=== PATIENT | male | born 1965 | race Caucasian/White ===

== ENCOUNTER 2022-09-03 15:01 | Emergency (ER) | payer OTHER ==
[2022-09-03 15:42] VITALS: BMI 21.4
[2022-09-03] MEDS ORDERED: ALPRAZolam 1 MG TABLET PO ONE (16:50)
[2022-09-03] MEDS ORDERED: ALPRAZolam 1 MG TABLET ONE (17:13)
[2022-09-03 17:24] LABS: BASO % 0.8 % (0-2.0); HEMOGLOBIN 15.3 GM/dL (11.7-16.9); LYMPH % 19.9 % (8-40); MCH 29.1 pg (25.7-33.7); MCHC 33.9 g/dl (32.0-35.9); MEAN CELL VOLUME 85.9 fl (80-96); MEAN PLT VOLUME 9.1 fl (7.5-11.1); MONO % 7.1 % (3.8-10.2); NEUT % 71.2 % (42.8-82.8); PLATELET COUNT 448 10^3/uL (134-434); RBC 5.24 M/mm3 (4.00-5.60); RDW 14.2 % (11.9-15.9); WHITE BLOOD COUNT 8.2 K/mm3 (4.0-10.0)
[2022-09-03 17:31] LABS: INR 1.34 (0.83-1.09); PROTHROMBIN TIME (PATIENT) 15.4 SEC (9.7-13.0)
[2022-09-03 17:33] LABS: ACTIVATED PTT 32.5 SECONDS (25.2-36.5)
[2022-09-03 17:43] LABS: BLOOD UREA NITROGEN 45.6 mg/dL (7-18); CALCIUM 10.7 mg/dL (8.5-10.1)
[2022-09-03 17:46] LABS: CREATININE 1.2 mg/dL (0.55-1.3)
[2022-09-03 17:48] LABS: TOT PROT 8.5 g/dl (6.4-8.2)
[2022-09-03] MEDS ORDERED: HALOPERIDOL LACTATE 5 MG/ML IM ONE ×2 (18:14→19:05)
[2022-09-03] MEDS ORDERED: LACTATED RINGERS SOLUTION 1000 ML INFUS.BAG IV ONE ×2 (18:14→18:42)
[2022-09-04 05:34] VITALS: RESP 18
[2022-09-04 05:40] VITALS: TEMP 97.4
[2022-09-04 09:29] VITALS: BP 102/76; PULSE 103
== END 2022-09-04 09:43 ==
LOC: JER 15:01
PROC: 3E023GC Introduction of Other Therapeutic Substance into Muscle, Percutaneous Approach (ICD-10-PCS; principal; 2022-09-03)
DX: R68.89 Other general symptoms and signs (principal); W19.XXXA Unspecified fall, initial encounter
CPT/HCPCS: 0241U-QW; 36415; 70450-TC; 71045-TC-FY; 72125-TC; 72170-TC-FY; 80053; 80177; 85025; 85610; 85730; 93005; 93010; 99285-25